=== PATIENT | female | born 1955 | race Caucasian/White ===

== ENCOUNTER → 2018-06-29 17:20 | Outpatient (CLI) | payer OTHER, SELFPAY ==
--- NOTE | 2018-06-27 | VAGW_PTH ---
PATIENT: NOAH ZAPATA LOC: [facility] U#:[id number] AGE/SX: 70/F ROOM: RE06/29/[address]: Dr. Nader Ch MD : 1955 BED: DIS: SPEC #: [id number] RECD: 06/27/18 16:43 STATUS: IZABELLA EILEEN #: [id number] DEVIN: 06/27/18 00:[address]: Nader Ch DEPT: SURGICAL PATHOLOGY RECD BY: Leno Mcdaniels Tissues: A - Vagina, NOS B - Vagina, NOS Procedures: Surgery Specimen Level IV HEADER OPERATION: Vaginal lesions PRE-OP DIAGNOSIS: Vaginal bleeding after hysterectomy TISSUE SUBMITTED: A. Vaginal cuff, B. Posterior vaginal wall biopsy MICROSCOPIC DIAGNOSIS A. Vaginal cuff, biopsy: Mild chronic inflammation. No evidence of dysplasia. B. Posterior vaginal wall, biopsy: Mild chronic inflammation. No evidence of dysplasia. AM:aurea COMMENT A & B. Results from immunohistochemistry ([id number]) for surrogate HPV marker (p16) will be reported separately. MICROSCOPIC DESCRIPTION Slides are reviewed. GROSS DESCRIPTION A. Received is one container labeled with the patient name and designated vaginal cuff biopsy. The specimen consists of fragments that in aggregate measure 1 x 0.5 x 0.2 cm. The specimen is totally submitted in one cassette. B. Received is one container labeled with the patient name and designated posterior vaginal wall biopsy. The specimen consists of two irregular fragments of light interiano soft tissue that in aggregate measure 0.6 x 0.2 x 0.1 cm. The specimen is totally submitted in one cassette. /ALYSON:aurea 06/30/18 TC: 3 [facility]: [id number]
--- NOTE | 2018-06-27 | IMM_PTH ---
PATIENT: NOAH ZAPATA LOC: [facility] U#:[id number] AGE/SX: 70/F ROOM: RE06/29/[address]: Dr. Nader Ch MD : 1955 BED: DIS: SPEC #: [id number] RECD: 07/01/18 10:30 STATUS: IZABELLA REAsia #: [id number] DEVIN: 06/27/18 00:[address]: Nader Ch DEPT: IMMUNOHISTOCHEMISTRY RECD BY: Natalio Velázquez Tissues: Vagina, NOS Procedures: p16 (initial) KI-67 (add) P16 (add) PHYSICIAN & INSTITUTION [place] [id number] SPECIMEN INFORMATION: Tissue Source: A. Vaginal cuff, B. Posterior vaginal wall biopsy Clinical Info: Vaginal bleeding after hysterectomy Specimen Number: [id number] A, B CPT code: 03847, 06429 x3 METHODOLOGY: Deparaffinized sections of prefer/formalin-fixed tissue or PAP/DQ stained slides are incubated with monoclonal/polyclonal antibodies/oligonucleotide probes. Localization is made via biotin free immunoperoxidase method. Appropriate controls are performed and reacted as expected. Results on target cell population are indicated in the following table: RESULTS: ANTIBODY / CLONE RESULT Block A P16 (E6H4) negative Ki-67 (30-9) negative Block B P16 (E6H4) negative Ki-67 (30-9) negative These tests were developed and their performance characteristics determined by [facility]. They may not have been cleared or approved by the U.S. Food and Drug Administration. The FDA has determined that such clearance or approval is not necessary. INTERPRETATION: A. Vaginal cuff, biopsy: No evidence of dysplasia. B. Posterior vaginal wall, biopsy: No evidence of dysplasia AM:ibis 07/02/18
== END ==
PROVIDERS: Referring Provider Obstetrics & Gynecology; Visit Provider Obstetrics & Gynecology
DX: N76.1 Subacute and chronic vaginitis (principal)
CPT/HCPCS: 88305; 88341; 88342

== ENCOUNTER → 2023-11-13 | Outpatient (CLI) | payer OTHER, SELFPAY ==
[2023-11-13 15:41] LABS: Absolute Lymphocyte Count 1.25 X10^3/uL (0.83-4.51); Absolute Neutrophil Count 2.6 X10^3/uL (2.0-7.7); Basophil# 0.02 X10^3/uL; Basophil% 0.4 % (0-1); Eosinophil# 0.26 X10^3/uL; Eosinophils% 5.7 % (0-5); Hematocrit 35.4 % (37-47); Hemoglobin 11.2 g/dL (12.0-15.0); Lymphocyte # 1.25 X10^3/ul (0.83-4.51); Lymphocyte % 27.2 % (19-41); Mean Corp Hgb Conc 31.6 g/dL (32-36); Mean Corpuscular Hgb 27.2 pg (27.0-32.0); Mean Corpuscular Volume 85.9 fL (81-99); Monocyte# 0.49 X10^3/uL; Monocyte% 10.7 % (0-10); NRBC Flagged by Analyzer 0 % (0-5); Neutrophil # 2.57 X10^3/uL (2.7-7.7); Platelet Count 185 K/mm3 (150-450); RBC Distribution Width CV 14.6 % (11.6-14.6); RBC Distribution Width SD 45.7 fl (35.1-43.9); Red Blood Count 4.12 M/mm3 (4.2-5.4); White Blood Count 4.6 K/mm3 (4.4-11.0)
[2023-11-13 16:03] LABS: Vitamin D,25 Hydroxy 46.8 ng/mL
[2023-11-13 16:16] LABS: BNP,B-Type NATRIURETIC PEPTIDE 62.6 pg/mL (0-100)
[2023-11-13 16:33] LABS: Anion Gap 5 (5-15); BUN 40 mg/dL (7-18); BUN/Creat Ratio 21.6 RATIO (10-20); Calcium,Total 9.6 mg/dL (8.5-10.1); Chloride 103 mmol/L (98-107); Creatinine, Serum 1.85 mg/dL (0.55-1.02); EST Glomerular Filtration Rate 29 mL/min (>60); Est Glom Filt Rate - Afr Amer 35 mL/min (>60); Glucose 102 mg/dL (74-106); Potassium 4.3 mmol/L (3.5-5.1); Sodium Level 136 mmol/L (136-145); Thyroid Stim Hormone (TSH) 3.15 uIU/mL (0.358-3.74)
== END | disposition home or self-care (01) ==
LOC: LAB 14:56
PROVIDERS: PCP Nurse Practitioner Family; Referring Provider Nurse Practitioner Gerontology; Visit Provider Nurse Practitioner Gerontology
DX: R06.09 Other forms of dyspnea (principal); R53.83 Other fatigue; E55.9 Vitamin D deficiency, unspecified
CPT/HCPCS: 36415; 80048; 82306; 83880; 84443; 85025

== ENCOUNTER 2023-12-02 06:55 | Day surgery (SDC) | payer OTHER, SELFPAY ==
--- NOTE | 2023-11-22 16:46 | RAD_ITS ---
INDICATION: Abnormal stress EXAMINATION/TECHNIQUE: X-RAY - XR Chest 2 Views COMPARISON: None. FINDINGS: LINES/DEVICES: None. LUNGS: No consolidation, edema or effusion. No pneumothorax. MEDIASTINUM AND CARDIOVASCULAR STRUCTURES: Cardiac silhouette enlarged. BONES AND SOFT TISSUES: No acute findings. RAD/Chest PA and Lateral IMPRESSION: Cardiomegaly without radiographic evidence of acute cardiopulmonary disease. Electronically Signed: Daryl Crabtree MD at 18:19 EDT ,
[2023-12-02 07:02] VITALS: BMI 39.4
--- NOTE | 2023-12-02 08:29 | CL.D_ITS ---
Patient Name: NOAH ZAPATA Study Date: 12/02/2023 Performing: Saran Walters MD Ht: 60 inches 152.4 cm : 1955 Wt: 202.01 lbs 91.63 kg Age: 68 Gender: female BSA: 1.87 PROCEDURE(S) PERFORMED DC02-(18724)[facility] CLINICAL PROFILE AND INDICATIONS Indications: Other Heart Failure: None Stress/Imaging Date: 11/10/23Stress Test with SPECT MPI: Positive Intermediate Risk CAD Presentations: Symptom unlikely to be ischemic. 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 Mild aortic stenosis present. RECOMMENDATIONS Recommend aggressive medical therapy and a GLP-1. DESCRIPTION OF PROCEDURE The patient arrived to the procedure lab. The risks and benefits of the procedure as well as a full description of our services here and current unavailability of surgical backup were fully explained to the patient and/or their significant other prior to the catheterization. The Timeout was completed, verifying the correct patient and procedure. The patient's procedural site was prepped and draped in the usual fashion. Local anesthetic was given subcutaneously to right radial region with Lidocaine 2%. Using a modified Seldinger technique, arterial access was obtained via the right radial artery, a 6Fr sheath was inserted. Left Coronary Artery selective angiography was performed in multiple views using a 5 Fr. 4.0 [place] catheter. Right Coronary Artery selective angiography was then performed in multiple views using a 5 Fr. 4.0 [place] catheter.The arterial sheath was pulled and a TR Band was applied for hemostasis CORONARY ANGIOGRAPHY DOMINANCE: Left Dominant LEFT HEART ASSESSMENT Left Ventricular Ejection Fraction: by Echo 55 % Normal Left Ventricular systolic function LEFT MAIN: Angiographically normal LEFT ANTERIOR DESCENDING ARTERY: This is a medium size and small vessel. There is mild diffuse disease. The vessel does not reach the apex of the ventricle. No high-grade stenosis is noted. CIRCUMFLEX ARTERY: There is a dominant vessel giving off a tiny first obtuse marginal branch and a second obtuse marginal branch with moderate diffuse disease. The distal vessel does not appear to demonstrate any high-grade stenosis RIGHT CORONARY ARTERY: Moderate luminal irregularities up to 50% VALVE FINDINGS: Aortic Valve Stenosis - mild COMPLICATIONS No Complications PROCEDURE MEDICATIONS Versed 1 mg IV Fentanyl 50 mcg IV Oxygen: 2 L/min via nasal cannula IV Fluids: .9 NaCl IV started @ 50 ml/hr 12/02/2023 07:27:48 SUMMARY OF HEMODYNAMIC DATA Time AIR REST ECG 07:24:45 AO 109/57 (80) SA 08:11:28 LV 134/13, 30 08:17:49 LV 138/16, 27 08:17:58 08:27:09 Signed By Saran Walters MD On 12/02/2023 08:28:23 Saran Walters MD
--- NOTE | 2023-12-02 08:37 | ECHOCS_ITS ---
Reason For Study: Abnormal Stress, Procedure This was a 2D Doppler, Color Flow transthoracic echocardiogram. The study was technically difficult. Contrast injection was performed. Exam performed in department. Left Ventricle Normal LV size. Left ventricular systolic function is normal. The left ventricular ejection fraction is 60 %. No regional wall motion abnormalities noted. Right Ventricle Normal RV size. Normal systolic function. Tricuspid Valve Normal tricuspid valve. Mild (1+) tricuspid valve insufficiency. Pulmonary artery systolic pressure is 54 mmHg. Mild pulmonary hypertension. Aortic Valve Peak aortic valve gradient 40 mmHg. Mean aortic valve gradient 21 mmHg. Mild to moderate aortic stenosis. Pulmonic Valve Normal pulmonic valve. Great Vessels Normal aortic root. The pulmonary artery is normal size. Normal inferior vena cava. Pericardium/Pleural No pericardial effusion. Medication 22 gauge I.V. with prn adaptor inserted into left arm. Diluted definity 2ml given slow IV push to enhance endocardial definition. MMode/2D Measurements & Calculations LVIDd: 4.1 cm IVSd: 0.92 cm LVOT diam: 1.8 cm LVIDs: 3.0 cm LVPWd: 0.86 cm LVOT area: 2.5 cm2 RVDd: 3.4 cm FS: 26.3 % Ao root diam: 2.5 cm LAV(MOD-bp): 53.0 ml LVAd ap4: 27.9 cm2 LA dimension: 4.2 cm LAV(MOD-bp) Indexed: 28.3 ml/m2 LVLd ap4: 7.9 cm LAV(MOD-sp2): 53.0 ml EDV(MOD-sp4): 80.9 ml LAV(MOD-sp4): 49.4 ml EDV(sp4-el): 84.0 ml LVAs ap4: 16.5 cm2 LVLs ap4: 6.5 cm ESV(MOD-sp4): 35.2 ml ESV(sp4-el): 35.9 ml EF(MOD-sp4): 56.5 % EF(sp4-el): 57.3 % SV(MOD-sp4): 45.7 ml SV(sp4-el): 48.1 ml LA A4 area: 18.5 cm2 RA A4 area: 16.6 cm2 TAPSE: 2.2 cm Time Measurements MV dec time: 0.26 sec Doppler Measurements & Calculations MV E max levi: 148.2 cm/sec Lat Peak E' Levi: 6.2 cm/sec Med Peak E' Levi: 6.1 cm/sec MV A max levi: 113.4 cm/sec E/E' lat: 24.0 E/E' med: 24.3 MV E/A: 1.3 MV V2 max: 188.1 cm/sec MV P1/2t max levi: 189.4 cm/sec Ao V2 max: 317.2 cm/sec MV max P.2 mmHg MV P1/2t: 92.1 msec Ao max P.3 mmHg MV V2 mean: 101.4 cm/sec Ao V2 mean: 213.2 cm/sec MV mean P.8 mmHg MV dec slope: 602.0 cm/sec2 Ao mean P.9 mmHg MV V2 VTI: 54.2 cm MVA(P1/2t): 2.4 cm2 Ao V2 VTI: 85.7 cm AV (velocity ratio): 0.39 MVA(VTI): 1.6 cm2 AIXA(I,D): 1.00 cm2 AIXA(V,D): 0.92 cm2 LV V1 max: 114.9 cm/sec MR max levi: 430.0 cm/sec SV(LVOT): 85.3 ml LV V1 max P.3 mmHg MR max P.0 mmHg LV V1 mean P.0 mmHg LV V1 mean: 83.0 cm/sec LV V1 VTI: 33.5 cm PA V2 max: 109.7 cm/sec TR max levi: 346.7 cm/sec TR max P.1 mmHg ECHO/Echo Complete W/ Contrast Interpretation Summary Normal LV size. Left ventricular systolic function is normal. The left ventricular ejection fraction is 60 %. Mild to moderate aortic stenosis. Pulmonary artery systolic pressure is 54 mmHg. Contrast injection was performed. Ordering Physician: Guillermina Padilla Referring Physician: Saran Walters Performed By: Amaury Poole RCS
== END 2023-12-02 10:55 | disposition home or self-care (01) ==
PROVIDERS: PCP Nurse Practitioner Family; Referring Provider Internal Medicine Cardiovascular Disease; Visit Provider Internal Medicine Cardiovascular Disease
DX: I35.0 Nonrheumatic aortic (valve) stenosis (principal); I10 Essential (primary) hypertension; R53.83 Other fatigue; R06.09 Other forms of dyspnea; E55.9 Vitamin D deficiency, unspecified; Z82.49 Family history of ischemic heart disease and other diseases of the circulatory system; R94.39 Abnormal result of other cardiovascular function study; Z79.82 Long term (current) use of aspirin
CPT/HCPCS: 71046; 93306; 93454; 99152; 99153; J7040; Q9967; C1769; C1894; C8929